=== PATIENT | female | born 1995 | race Caucasian/White ===

== ENCOUNTER 2021-01-23 07:48 | Day surgery (SDC) | payer OTHER ==
[2021-01-22 17:46] LABS: Absolute Lymphocytes (CBC) 2.7 K/uL (0.7-4.9); Basophils % 0.3 % (0-1.3); Hematocrit 39.7 % (36.0-45.0); Lymphocytes % 21.1 % (15.3-44.8); MPV 7.6 fL (7.6-11.3); RBC Red Blood Cell Count 4.68 M/uL (3.86-4.86)
[2021-01-22 17:54] LABS: BUN Blood Urea Nitrogen 9 mg/dL (7-18); Bicarbonate 25 mmol/L (21-32); Glucose Level 83 mg/dL (74-106); Potassium 3.7 mmol/L (3.5-5.1); Sodium Level 138 mmol/L (136-145)
[2021-01-23] MEDS ORDERED: CEFAZOLIN/SWI 1gm 1 GM/10 ML SYR ONE (08:34)
[2021-01-23] MEDS ORDERED: METHYLENE BLUE 0.5% 10 ML AMP ONE (08:58)
[2021-01-23] MEDS ORDERED: LIDOCAINE 1% MPF 5 ML VIAL ONE (09:08)
[2021-01-23] MEDS ORDERED: propofoL 200 MG/20 ML VIAL IV ONE (09:08)
[2021-01-23] MEDS ORDERED: ROCURONIUM 50 MG/5 ML VIAL IV ONE (09:08)
[2021-01-23] MEDS ORDERED: FENTANYL CITR 100 MCG/2 ML ONE ×2 (09:08→10:13)
[2021-01-23] MEDS ORDERED: NEOSTIGMINE 1 MG/ML -5 ML ONE (10:13)
[2021-01-23] MEDS ORDERED: GLYCOPYRROLATE 0.2 MG/ML SYR ONE (10:13)
--- NOTE | 2021-01-23 10:15 | P.BOP ---
Preoperative diagnosis: Infected pilonidal cyst Postoperative diagnosis: same Primary procedure: Wide excision Infected pilonidal cyst 12 x 5 x 3 cm Estimated blood loss: <10cc Specimen: culture, cyst Findings: abscess Anesthesia: General Complications: None Drain(s): Other Transferred to: Recovery Room Condition: Good
[2021-01-23] MEDS: MORPHINE 4 MG/ML SYR ONE ×2 (10:44→10:55)
[2021-01-23] MEDS ORDERED: PROMETHAZINE INJ 25 MG/ML AMP ONE (10:48)
[2021-01-23] MEDS: CODEINE 30MG/APAP 300MG TAB ONE ×2 (12:00→12:10)
[2021-01-23 13:22] VITALS: O2SAT 100
--- NOTE | 2021-01-23 13:24 | OP ---
Date of Procedure: 01/23/2021 Surgeon: Kyree Easton MD Preoperative Diagnosis: Infected pilonidal cyst and 9 weeks intrauterine . Postoperative Diagnosis: Infected pilonidal cyst and 9 weeks intrauterine plus abscess. Procedure: Wide excision of infected pilonidal cyst 12 x 5 x 3 cm. Specimen: Culture of the pus and cyst. Finding: Abscess on the cyst with purulent discharge. Anesthesia: General plus local. Indication: This is the case of a 25-year-old patient, comes to us with a tender pilonidal cyst. Rosangela kalli has been dealing with that for a few years, but never got to the point of this redness and bothered her. When we looked in the area, the patient has multiple openings from previous attempt to drain _ of abscess. At this time, she has fluctuance, induration, redness. She has on and off iss ues when she was a teenager, but not like this. She has I and D's in the past. I explained to cristóbal rajan that with her hospice liaison yesterday when we saw her in the office because we are planning to do w jessica excision of this infected pilonidal cyst with drainage of an abscess and she is going to be on Au gmentin and Tylenol No.3 and she discussed that with the hospice liaison and they agreed with the plan. The benefits, alternatives, and risks were fully explained to her and her , which include, bu t not limited to infection, bleeding, damage to adjacent structures, anesthesia complication, nonheal ing wound, [place], and even . They also understand this may not relieve any symptoms. She might ne ed more than one surgical intervention. It may recur and also she understands she most likely will n eed wound care. She signed a consent. Procedure In Detail: The patient was brought to the operating room, placed in supine position. Anes thesia was done without complication. The patient was placed in prone position with proper protectio n. The perisacral area was prepped and draped in usual sterile fashion. We have this large cyst pre sent with multiple openings. We put a blue dye through one of the openings leading the area of the c yst and then after that, we proceeded to make this excision all the way down to sacrum. The area is large about 12 x 5 x 3 cm. The entire area was removed. The abscess that we found deep inside was d rained, cultured, irrigated, hemostasis obtained, and then the area was packed with wet-to-dry dressi ng. The patient tolerated the procedure well. The patient was sent to recovery in stable condition. TENA/LINWOOD Voice ID: [id number] Report ID: [id number]
[2021-01-23 13:26] VITALS: BP 125/57; TEMP 98.5
--- NOTE | 2021-01-23 13:40 | DS ---
Diagnosis: Infected pilonidal cyst with abscess. Procedure: Wide excision of infected pilonidal cyst. Disposition: Home. Activity: As tolerated. No heavy lifting. Plan: Follow up in my office in 1 week. Call for appointment at [phone]. The patient will do dres sing changes daily, starting 48 hours from now with normal saline. The patient's was explain ed. Medications: Include Tylenol No.3 q.4 hours p.r.n. pain and Augmentin 875 p.o. q.12. TENA/LINWOOD Voice ID: [id number] Report ID: [id number]
== END 2021-01-23 13:00 | disposition home or self-care (01) ==
LOC: OR 07:48
PROVIDERS: ATTEND Surgery
PROC: 0JB90ZZ Excision of Buttock Subcutaneous Tissue and Fascia, Open Approach (ICD-10-PCS; principal; 2021-01-23 09:00)
DX: L05.01 Pilonidal cyst with abscess (principal); Z20.822 Contact with and (suspected) exposure to COVID-19
CPT/HCPCS: 36415; 80048; 82947; 85025; 87070; 87075; 87205; 88304; J0690; J2550; J2704; J2710; J3010; U0003

== ENCOUNTER 2021-11-22 14:13 | Emergency (ER) | payer OTHER, BC ==
--- OUTSIDE RECORDS SUMMARY | 2021-11-22 14:16 | XMS REPORT | Continuity of Care Document ---
:1995 Author Organization [facility] t Address [address] [place] [address] Care Team Providers Name Role Phone Yovany Angeles Attending Clinician Unavailable LANE_ENIO_Karthik_t Attending Clinician Unavailable LANE_YULISA_Karthik_T Attending Clinician Unavailable Elvia Angeles Attending Clinician [phone] Rodney GIBSON Attending Clinician Pob, Lab Main Attending Clinician Unavailable RODNEY Attending Clinician Unavailable Doctor Unassigned, Name Attending Clinician Unavailable Alex Galicia DO Attending Clinician Lab, Fam Pob I Attending Clinician Unavailable Unknown Attending Clinician Unavailable UNKNOWN Attending Clinician Unavailable Yovany GTZ Attending Clinician Unavailable TYLER DEGROOT Attending Clinician Unavailable Yovany Angeles Admitting Clinician Unavailable LANE_ENIO_Karthik_dionicio Admitting Clinician Unavailable LANE_YULISA_Karthik_T Admitting Clinician Unavailable Payers Payer Name Policy Type Policy Number Effective Date Expiration Date Abby bishop AETDEMI (POS) [id number] 2004 00:00:00 [place] [id number] 2021 00[place]00[place]00 [place] Problems Condition Condition Condition Status Onset Resolution Last Treating Co mments Source Name Details Category Date Date Treatment Clinician Date Irregular Irregular Disease Active Uni vers periods/me periods/me 6-23 it y of nstrual nstrual 00:00: [place] cycles cycles [address] [place] [address] Patient Patient Disease Active [facility] desires desires 6-23 [place] Morbid Morbid Disease Active 2019-06 Univers obesity obesity 0-23 [place] of with body with body [place] mass index mass index 00 Me dical of of Branch 40.0-49.9 40.0-49.9 Class 3 Class 3 Disease Active 2019-06 Univers severe severe 0-23 ity of obesity obesity 00:00: [place] without without 00 Medical serious serious Branch comorbidit comorbidit y with y with body mass body mass index index (BMI) of (BMI) of 45.0 to 45.0 to 49.9 in 49.9 in adult, adult, unspecifie unspecifie d obesity d obesity type type Allergies, Adverse Reactions, Alerts Allergy Allergy Status Severity Reaction(s) Onset Inactive Treating Comm ents Source Name Type Date Date Clinician No Known DA Active [facility]15 [facility] [place] No Known DA Active U [facility] Allergie 08-01 [facility] [place] NO KNOWN Drug Active Univers ALLERGIE Class ity of S [facility] Social History Social Habit Start Date Stop Date Quantity Comments Source Exposure to Not sure [facility] SARS-CoV-2 [facility] (event) Branch Tobacco use and 2020-12-13 2020-12-13 Never used Universit y of exposure 00:00:00 00:00:00 [facility] Alcohol intake 2020-12-13 2020-12-13 Current drinker Unive rsity of 00:00:00 00:00:00 of alcohol [place] [facility] (finding) Branch History SDNY 2020-03-06 2020-03-06 2 University o f Alcohol Frequency 00:00:00 00:00:00 [place] M edical Branch History SDOH 2020-03-06 2020-03-06 2 University o f Alcohol Std 00:00:00 00:00:00 [place] [facility] Drinks Branch History SDNY 2020-03-06 2020-03-06 1 University o f Alcohol Binge 00:00:00 00:00:00 [place] [facility] al Branch Alcohol Comment 2020-03-06 2020-03-06 rarely Universit y of 00:00:00 00:00:00 [facility] Sex Assigned At [birth year] Universit y of 00:00:00 00:00:00 [facility] Smoking Status Start Date Stop Date Source Unknown if ever smoked Universit y [facility] [place] [facility] Never smoker [facility] Medications Ordered Filled Start Stop Current Ordering Indication Dosage Frequency Signature Comments Components Source Medication Medication Date Date Medication? Clinician (SIG) Name Name levonorgest 2020- No 1{devic 1 Device Univers reL 14 6-23 06-23 e} by ity of mcg/24 hrs 15:18: 00:00 Intrauteri [place] (3 yrs) 44 :00 ne route Medical 13.5 mg IUD once now. [facility] levonorgest 2020- No 1{devic 1 Device Univers reL 14 6-23 06-23 e} by ity of mcg/24 hrs 15:18: 00:00 Intrauteri [place] (3 yrs) 44 :00 ne route Medical 13.5 mg IUD once now. [facility] metformin 2020-0 Yes [id number] 1500mg Take 3 Univers ER 500 mg 6-22 104 tablets by ity of 24 hr 00:00: mouth at [place] tablet 00 bedtime. [facility] [place] first week take one tablet at night, for the second week take 2 tablets, and then for the third take three tablets metformin 2020-0 Yes [id number] 1500mg Take 3 Univers ER 500 mg 6-22 104 tablets by ity of 24 hr 00:00: mouth at [place] tablet 00 bedtime. [facility] [place] first week take one tablet at night, for the second week take 2 tablets, and then for the third take three tablets metformin 2020-0 Yes [id number] 1500mg Take 3 Univers ER 500 mg 6-22 104 tablets by ity of 24 hr 00:00: mouth at [place] tablet 00 bedtime. Medical For the [facility] first week take one tablet at night, for the second week take 2 tablets, and then for the third take three tablets metformin 2020-0 Yes [id number] 1500mg Take 3 Univers ER 500 mg 6-22 104 tablets by ity of 24 hr 00:00: mouth at [place] tablet 00 bedtime. [facility] [place] first week take one tablet at night, for the second week take 2 tablets, and then for the third take three tablets metformin 2020-0 Yes [id number] 1500mg Take 3 Univers ER 500 mg 6-22 104 tablets by ity of 24 hr 00:00: mouth at [place] tablet 00 bedtime. Medical For the [facility] first week take one tablet at night, for the second week take 2 tablets, and then for the third take three tablets metformin 2020-0 Yes [id number] 1500mg Take 3 Univers ER 500 mg 6-22 104 tablets by ity of 24 hr 00:00: mouth at [place] tablet 00 bedtime. Medical For the [facility] first week take one tablet at night, for the second week take 2 tablets, and then for the third take three tablets [id number] 2020-1 Yes [id number] 1{tbl} Take 1 Univers 3-dha-epa-f 0-23 tablet by ity of deepti oil 00:00: mouth [place] ( 00 daily. Medical GUMMY) 400 Branch mcg-35 mg -25 mg-5 mg Chew [id number] 2020-1 Yes [id number] 1{tbl} Take 1 Univers 3-dha-epa-f 0-23 tablet by ity of deepti oil 00:00: mouth [place] ( 00 daily. Medical GUMMY) 400 Branch mcg-35 mg -25 mg-5 mg Chew [id number] 2020-1 Yes [id number] 1{tbl} Take 1 Univers 3-dha-epa-f 0-23 tablet by ity of deepti oil 00:00: mouth [place] ( 00 daily. Medical GUMMY) 400 Branch mcg-35 mg -25 mg-5 mg Chew [id number] 2020-1 Yes [id number] 1{tbl} Take 1 Univers 3-dha-epa-f 0-23 tablet by ity of deepti oil 00:00: mouth [place] ( 00 daily. Medical GUMMY) 400 Branch mcg-35 mg -25 mg-5 mg Chew [id number] 2020-1 Yes [id number] 1{tbl} Take 1 Univers 3-dha-epa-f 0-23 tablet by ity of deepti oil 00:00: mouth [place] ( 00 daily. Medical GUMMY) 400 Branch mcg-35 mg -25 mg-5 mg Chew [id number] 2020-1 Yes [id number] 1{tbl} Take 1 Univers 3-dha-epa-f 0-23 tablet by ity of deepti oil 00:00: mouth [place] ( 00 daily. Medical GUMMY) 400 Branch mcg-35 mg -25 mg-5 mg Chew [id number] 2020-1 Yes [id number] 1{tbl} Take 1 Univers 3-dha-epa-f 0-23 tablet by ity of deepti oil 00:00: mouth [place] ( 00 daily. Medical GUMMY) 400 Branch mcg-35 mg -25 mg-5 mg Chew [id number] 2020-1 Yes [id number] 1{tbl} Take 1 Univers 3-dha-epa-f 0-23 tablet by ity of deepti oil 00:00: mouth [place] ( 00 daily. Medical GUMMY) 400 Branch mcg-35 mg -25 mg-5 mg Chew [id number] 2020-1 Yes [id number] 1{tbl} Take 1 Univers 3-dha-epa-f 0-23 tablet by ity of deepti oil 00:00: mouth [place] ( 00 daily. Medical GUMMY) 400 Branch mcg-35 mg -25 mg-5 mg Chew [id number] 2020-1 Yes [id number] 1{tbl} Take 1 Univers 3-dha-epa-f 0-23 tablet by ity of deepti oil 00:00: mouth [place] ( 00 daily. Medical GUMMY) 400 Branch mcg-35 mg -25 mg-5 mg Chew [id number] 2020-1 Yes [id number] 1{tbl} Take 1 Univers 3-dha-epa-f 0-23 tablet by ity of deepti oil 00:00: mouth [place] ( 00 daily. Medical GUMMY) 400 Branch mcg-35 mg -25 mg-5 mg Chew levonorgest 2020-0 Yes 1{devic 1 Device Univers reL 14 9-14 e} by ity of mcg/24 hrs 19:12: Intrauteri [place] (3 yrs) 52 ne route Medical 13.5 mg IUD once now. [facility] levonorgest 2020-0 Yes 1{devic 1 Device Univers reL 14 9-14 e} by ity of mcg/24 hrs 19:12: Intrauteri [place] (3 yrs) 52 ne route Medical 13.5 mg IUD once now. [facility] levonorgest 2020-0 Yes 1{devic 1 Device Univers reL 14 9-14 e} by ity of mcg/24 hrs 19:12: Intrauteri [place] (3 yrs) 52 ne route Medical 13.5 mg IUD once now. [facility] levonorgest 2020-0 Yes 1{devic 1 Device Univers reL 14 9-14 e} by ity of mcg/24 hrs 19:12: Intrauteri [place] (3 yrs) 52 ne route Medical 13.5 mg IUD once now. [facility] levonorgest 2020-0 Yes 1{devic 1 Device Univers reL 14 9-14 e} by ity of mcg/24 hrs 19:12: Intrauteri [place] (3 yrs) 52 ne route Medical 13.5 mg IUD once now. [facility] glycopyrrol 2019-0 Yes TAKE ONE Un evelyn ate 1 mg 8-19 (1) ity of tablet 00:00: TABLET(S) [place] 00 BY MOUTH Medical ONCE A DAY Branch FOR ONE WEEK THEN INCREASE TO TWO (2) TABLET(S) DAILY TOLERATED. glycopyrrol 2020-0 Yes TAKE ONE Un evelyn ate 1 mg 8-19 (1) ity of tablet 00:00: TABLET(S) [place] 00 BY MOUTH Medical ONCE A DAY Branch FOR ONE WEEK THEN INCREASE TO TWO (2) TABLET(S) DAILY TOLERATED. glycopyrrol 2019-0 Yes TAKE ONE Un evelyn ate 1 mg 8-19 (1) ity of tablet 00:00: TABLET(S) [place] 00 BY MOUTH Medical ONCE A DAY Branch FOR ONE WEEK THEN INCREASE TO TWO (2) TABLET(S) DAILY TOLERATED. glycopyrrol 2020-0 Yes TAKE ONE Un evelyn ate 1 mg 8-19 (1) ity of tablet 00:00: TABLET(S) [place] 00 BY MOUTH Medical ONCE A DAY Branch FOR ONE WEEK THEN INCREASE TO TWO (2) TABLET(S) DAILY TOLERATED. glycopyrrol 2020-0 Yes TAKE ONE Un evelyn ate 1 mg 8-19 (1) ity of tablet 00:00: TABLET(S) [place] 00 BY MOUTH Medical ONCE A DAY Branch FOR ONE WEEK THEN INCREASE TO TWO (2) TABLET(S) DAILY TOLERATED. glycopyrrol 2020-0 2020- No TAKE ONE U nivers ate 1 mg 8-19 06-23 (1) ity of tablet 00:00: 00:00 TABLET(S) [place] 00 :00 BY MOUTH Medical ONCE A DAY Branch FOR ONE WEEK THEN INCREASE TO TWO (2) TABLET(S) DAILY TOLERATED. glycopyrrol 2019-0 2020- No TAKE ONE U nivers ate 1 mg 02-08 (1) ity of tablet 00:00: 00:00 TABLET(S) [place] 00 :00 BY MOUTH Medical ONCE A DAY Branch FOR ONE WEEK THEN INCREASE TO TWO (2) TABLET(S) DAILY TOLERATED. buPROPion 2019-0 Yes TAKE ONE Univ ers XL 300 mg 8-08 (1) ity of 24 hr 00:00: TABLET(S) [place] tablet 00 BY MOUTH Medical ONCE A DAY Branch IN THE MORNING. buPROPion 2019-0 Yes TAKE ONE Univ ers XL 300 mg 8-08 (1) ity of 24 hr 00:00: TABLET(S) [place] tablet 00 BY MOUTH Medical ONCE A DAY Branch IN THE MORNING. buPROPion 2019-0 Yes TAKE ONE Univ ers XL 300 mg 8-08 (1) ity of 24 hr 00:00: TABLET(S) [place] tablet 00 BY MOUTH Medical ONCE A DAY Branch IN THE MORNING. buPROPion 2019-0 Yes TAKE ONE Univ ers XL 300 mg 8-08 (1) ity of 24 hr 00:00: TABLET(S) [place] tablet 00 BY MOUTH Medical ONCE A DAY Branch IN THE MORNING. buPROPion 2019-0 Yes TAKE ONE Univ ers XL 300 mg 8-08 (1) ity of 24 hr 00:00: TABLET(S) [place] tablet 00 BY MOUTH Medical ONCE A DAY Branch IN THE MORNING. buPROPion 2019-0 2020- No TAKE ONE Uni vers XL 300 mg 812-13 (1) ity of 24 hr 00:00: 00:00 TABLET(S) [place] tablet 00 :00 BY MOUTH Medical ONCE A DAY Branch IN THE MORNING. buPROPion 2019-0 2020- No TAKE ONE Uni vers XL 300 mg 812-13 (1) ity of 24 hr 00:00: 00:00 TABLET(S) [place] tablet 00 :00 BY MOUTH Medical ONCE A DAY Branch IN THE MORNING. clindamycin 2019-0 Yes APPLY A Uni vers 1 % gel 7-20 SMALL ity of 00:00: AMOUNT TO [place] [id number] AFFECTED Medical AREA TWICE Branch A DAY clindamycin 2020-0 Yes APPLY A Uni vers 1 % gel 7-20 SMALL ity of 00:00: AMOUNT TO [place] AFFECTED Medical AREA TWICE Branch A DAY clindamycin Yes APPLY A Uni vers 1 % gel 7-20 SMALL ity of 00:00: AMOUNT TO [place] AFFECTED Medical AREA TWICE Branch A DAY clindamycin Yes APPLY A Uni vers 1 % gel 7-20 SMALL ity of 00:00: AMOUNT TO [place] AFFECTED Medical AREA TWICE Branch A DAY clindamycin Yes APPLY A Uni vers 1 % gel 7-20 SMALL ity of 00:00: AMOUNT TO [place] AFFECTED Medical AREA TWICE Branch A DAY clindamycin 2020- No APPLY A Un evelyn 1 % gel 7-10 12- SMALL ity of 00:00: 00:00 AMOUNT TO [place] 00 :00 AFFECTED Medical AREA TWICE Branch A DAY clindamycin 2020- No APPLY A Un evelyn 1 % gel 7-20 - SMALL ity of 00:00: 00:00 AMOUNT TO [place] 00 :00 AFFECTED Medical AREA TWICE Branch A DAY FLUoxetine Yes TAKE 1 Unive rs 40 mg 7-07 CAPSULE ity of capsule 00:00: (40 MG) BY [facility] MOUTH Medical DAILY Branch FLUoxetine Yes TAKE 1 Unive rs 40 mg 7-07 CAPSULE ity of capsule 00:00: (40 MG) BY [place] [address] MOUTH Medical DAILY Branch FLUoxetine Yes TAKE 1 Unive rs 40 mg 7-07 CAPSULE ity of capsule 00:00: (40 MG) BY [place] [address] MOUTH Medical DAILY Branch FLUoxetine Yes TAKE 1 Unive rs 40 mg 7-07 CAPSULE ity of capsule 00:00: (40 MG) BY [place] [address] MOUTH Medical DAILY Branch FLUoxetine Yes TAKE 1 Unive rs 40 mg 7-07 CAPSULE ity of capsule 00:00: (40 MG) BY [place] [address] MOUTH Medical DAILY Branch FLUoxetine 2020- No TAKE 1 Univ ers 40 mg -12 26-23 CAPSULE ity of capsule 00:00: 00:00 (40 MG) BY [facility] [place] 00 : MOUTH Medical DAILY Branch FLUoxetine 2020- No TAKE 1 Univ ers 40 mg -12 26-23 CAPSULE ity of capsule 00:00: 00:00 (40 MG) BY [place] 00 :00 MOUTH Medical DAILY Branch CLARAVIS 20 2019- No TAKE ONE U nivers mg capsule 12-15 (1) ity of 00:00: 00:00 CAPSULE(S) [place] 00 :00 BY MOUTH Medical TWICE A Branch DAY WITH MEALS. CLARAVIS 20 2019- No TAKE ONE U nivers mg capsule 12-15 (1) ity of 00:00: 00:00 CAPSULE(S) [place] 00 :00 BY MOUTH Medical TWICE A Branch DAY WITH MEALS. Immunizations Ordered Filled Immunization Date Status Comments [facility] e Immunization Name Name HPV Unspecified 2014-06-23 Completed Universit y of 00:00:00 [place] [facility] HPV Unspecified 2014-06-23 Completed Universit y of 00:00:00 [place] [facility] HPV Unspecified 2014-06-23 Completed Universit y of 00:00:00 [place] [facility] HPV Unspecified 2014-06-23 Completed Universit y of 00:00:00 [place] [facility] HPV Unspecified 2014-06-23 Completed Universit y of 00:00:00 [place] [facility] HPV Unspecified 2014-06-23 Completed Universit y of 00:00:00 [place] [facility] HPV Unspecified 2014-06-23 Completed Universit y of 00:00:00 [place] [facility] HPV Unspecified 2014-06-23 Completed Universit y of 00:00:00 [place] [facility] HPV Unspecified 2014-06-23 Completed Universit y of 00:00:00 [place] [facility] HPV Unspecified 2014-06-23 Completed Universit y of 00:00:00 [place] [facility] HPV Unspecified 2014-06-23 Completed Universit y of 00:00:00 [facility] Vital Signs Vital Name Observation Time Observation Value Comments Source Systolic blood 2020-12-12 18:15:00 121 mm[Hg] Univer sity of pressure [facility] Diastolic blood 2020-12-12 18:15:00 73 mm[Hg] Unive rsity of [facility] Heart rate 2020-12-12 18:15:00 69 /min [facility] [place] Body temperature 2020-12-12 18:15:00 37.06 [facility] Respiratory rate 2020-12-12 18:15:00 18 /min [facility] Body height 2020-12-12 18:15:00 160 cm [facility] Body weight 2020-12-12 18:15:00 116.121 kg [facility] BMI 2020-12-12 18:15:00 45.35 kg/m2 [facility] Systolic blood 2020-04-14 18:18:00 104 mm[Hg] Univer sity of pressure [facility] Diastolic blood 2020-04-14 18:18:00 69 mm[Hg] Unive rsity [facility] Heart rate 2020-04-14 18:18:00 76 /min [facility] Body temperature 2020-04-14 18:18:00 36.89 [facility] Respiratory rate 2020-04-14 18:18:00 20 /min [facility] Body height 2020-04-14 18:18:00 160 cm [facility] Body weight 2020-04-14 18:18:00 111.642 kg [facility] BMI 2020-04-14 18:18:00 43.60 kg/m2 [facility] Procedures Procedure Date / Time Performing Clinician Source Performed [id number] 2021-08-15 00:00:00 [facility] PROLACTIN 2020-12-13 19:18:00 [facility] FREE T4 2020-12-13 19:18:00 [facility] [place] [facility] THYROID STIMULATING 2020-12-13 19:18:00 [facility] HORMONE [facility] LIPID PANEL 2020-12-13 19:18:00 [facility] ([id number])(TOTAL Medical Branch CHOLESTEROL, TRIGLYCERIDES, HDL) GLYCOSYLATED HEMOGLOBIN 2020-12-13 19:18:00 [facility] (A1C) [facility] FREE T3 2020-12-13 19:18:00 [facility] [place] [facility] CONSENT/REFUSAL FOR 2020-12-13 18:56:12 Doctor Unassigned, No [facility] DIAGNOSIS AND TREATMENT Name Medical [place] ASSIGNMENT OF BENEFITS 2020-12-13 18:56:03 Doctor Unassigned, No [facility] Name Medical Branch DISCLOSURE AND CONSENT, 2020-04-14 05:01:00 Doctor Unassigned, N o University [facility] MEDICAL AND SURGICAL Name Medical [facility] PROCEDURES CONSENT/REFUSAL FOR 2020-03-06 17:58:33 Doctor Unassigned, No Un [facility] DIAGNOSIS AND TREATMENT Name Medical Branch ASSIGNMENT OF BENEFITS 2020-03-06 17:58:19 Doctor Unassigned, No [facility] Name Medical Branch Encounters Start End Encounter Admission Attending Care Care Encounter Source Date/Time Date/Time Type Type Clinicians Facility Department ID 2021-08-27 Inpatient Mariah Germain [facility] [id number] [facility] 15:39:00 [id number] [facility] 2021-08-13 Inpatient Mariah Germain [facility] [id number] [facility] 11:00:[id number] [facility] 2021-10-27 2021-10-27 Outpatient GC_SWHATBIC PRIV PRIV [id number] [facility] 02:08:00 02:08:00 _Trevon [id number] Medic al 2021-10-13 2021-10-13 Outpatient GC_SWHAOMC_ PRIV PRIV [id number] [facility] 04:17:00 04:17:00 Trevon [id number] Medica l 2021-10-12 2021-10-12 Outpatient GC_SWHAOMC_ PRIV PRIV [id number] [facility] 03:47:00 03:47:00 Trevon [id number] Medica l 2021-10-12 2021-10-12 Outpatient Mariah Angeles PRIV PRIV [id number] 00:00:00 00:00:00 Elvia [id number] 2021-09-29 2021-09-29 Outpatient GC_SWHATBIC PRIV PRIV [id number] [facility] 01:46:00 01:46:00 _Trevon [id number] Medic al 2021-09-29 2021-09-29 Outpatient GC_SWHAOMC_ PRIV PRIV [id number] [facility] 01:46:00 01:46:00 Trevon [id number] Medica l 2021-09-27 2021-09-27 Outpatient GC_SWHAOMC_ PRIV PRIV [id number] [facility] 07:04:00 07:04:00 Bruce_T [id number] Medica l 2021-09-26 2021-09-26 Outpatient GC_SWHAOMC_ PRIV PRIV [id number] [facility] 11:03:00 11:03:00 Bruce_T [id number] Medica l 2021-09-26 2021-09-26 Outpatient Karthik Mariah PRIV PRIV [id number] 00:00:00 00:00:00 Elvia [id number] 2021-09-11 2021-09-11 Outpatient GC_SWHAOMC_ PRIV PRIV [id number] [facility] 08:24:00 08:24:00 Bruce_T [id number] Medica l 2021-09-11 2021-09-11 Outpatient GC_SWHAOMC_ PRIV PRIV [id number] [facility] 08:24:00 08:24:00 Bruce_T [id number] Medica l 2021-09-03 2021-09-03 Outpatient GC_SWHAOMC_ PRIV PRIV [id number] [facility] 03:13:00 03:13:00 Bruce_T [id number] Medica l 2021-09-01 2021-09-01 Outpatient GC_SWHATBIC PRIV PRIV [id number] [facility] 01:37:00 01:37:00 _Bruce_t [id number] Medic al 2021-08-30 2021-08-30 Outpatient GC_SWHAOMC_ PRIV PRIV [id number] [facility] 03:15:00 03:15:00 Bruce_T [id number] Medica l 2021-08-30 2021-08-30 Outpatient Karthik Mariah PRIV PRIV [id number] 00:00:00 00:00:00 Elvia [id number] 2021-08-22 2021-08-22 Outpatient GC_SWHAOMC_ PRIV PRIV [id number] [facility] 05:00:00 05:00:00 Bruce_T [id number] Medica l 2021-08-22 2021-08-22 Outpatient GC_SWHAOMC_ PRIV PRIV [id number] [facility] 05:00:00 05:00:00 Bruce_T [id number] Medica l 2021-08-22 2021-08-22 Outpatient Mariah Angeles PRIV PRIV [id number] 00:00:00 00:00:00 Elvia [id number] 2021-08-15 2021-08-17 Inpatient Mariah Germain [facility] OBPP [id number] [facility] 13:19:00 10:45:00 [id number] [facility] 2021-08-15 2021-08-17 Inpatient EL Mariah Angeles [facility] OBPP [id number] [facility] 13:19:00 10:45:00 13 [facility] 2021-08-16 2021-08-16 Outpatient GC_SWHAOMC_ PRIV PRIV [id number] [facility] 02:28:00 02:28:00 Bruce_T [id number] Medica l 2021-08-16 2021-08-16 Outpatient GC_SWHAOMC_ PRIV PRIV [id number] [facility] 02:28:00 02:28:00 Bruce_T [id number] Medica l 2021-08-15 2021-08-15 Outpatient GC_SWHAOMC_ PRIV PRIV [id number] [facility] 03:17:00 03:17:00 Bruce_T [id number] Medica l 2021-08-14 2021-08-14 Outpatient GC_SWHAOMC_ PRIV PRIV [id number] [facility] 02:45:00 02:45:00 Bruce_T [id number] Medica l 2021-08-14 2021-08-14 Outpatient Mraiah Angeles PRIV PRIV [id number] 00:00:00 00:00:00 Elvia [id number] 2021-08-06 2021-08-06 Outpatient GC_SWHAOMC_ PRIV PRIV [id number] [facility] 05:32:00 05:32:00 Bruce_T [id number] Medica l 2021-08-06 2021-08-06 Outpatient GC_SWHAOMC_ PRIV PRIV [id number] [facility] 05:32:00 05:32:00 Bruce_T [id number] Medica l 2021-08-06 2021-08-06 Outpatient Karthik Mariah PRIV PRIV [id number] 00:00:00 00:00:00 Elvia [id number] 2021-08-01 2021-08-03 Inpatient Mariah Germain [facility] OB[facility]TE [id number] [facility] 10:57:00 15:38:00 [id number] [facility] 2021-08-01 2021-08-01 Inpatient Mariah Germain [facility] [id number] [facility] 10:57:00 10:57:00 29 [facility] 2021-07-27 2021-07-27 Outpatient GC_SWHAOMC_ PRIV PRIV [id number] [facility] 01:00:00 01:00:00 Bruce_T [id number] Medica l 2021-07-26 2021-07-26 Outpatient GC_SWHAOMC_ PRIV PRIV [id number] [facility] 04:51:00 04:51:00 Bruce_T [id number] Medica l 2021-07-24 2021-07-24 Outpatient GC_SWHAOMC_ PRIV PRIV [id number] [facility] 11:28:00 11:28:00 Bruce_T [id number] Medica l 2021-07-24 2021-07-24 Outpatient Karthik Mariah PRIV PRIV [id number] 00:00:00 00:00:00 Elvia [id number] 2021-07-18 2021-07-18 Outpatient GC_SWHAOMC_ PRIV PRIV [id number] [facility] 03:58:00 03:58:00 Bruce_T [id number] Medica l 2021-07-18 2021-07-18 Outpatient GC_SWHAOMC_ PRIV PRIV [id number] [facility] 03:58:00 03:58:00 Bruce_T [id number] Medica l 2021-07-18 2021-07-18 Outpatient Karthik Mariah PRIV PRIV [id number] 00:00:00 00:00:00 Elvia [id number] 2021-07-17 2021-07-17 Outpatient GC_S[facility]AOMC_ PRIV PRIV [id number] [facility] 11:24:00 11:24:00 Trevon [id number] Medica l 2021-07-16 2021-07-16 Outpatient GC_SWHAOMC_ PRIV PRIV [id number] [facility] 11:44:00 11:44:00 Trevon [id number] Medica l 2021-07-11 2021-07-11 Outpatient GC_SWHAOMC_ PRIV PRIV [id number] [facility] 05:25:00 05:25:00 Trevon [id number] Medica l 2021-07-10 2021-07-10 Outpatient GC_SWHAOMC_ PRIV PRIV [id number] [facility] 01:21:00 01:21:00 Trevon [id number] Medica l 2021-07-09 2021-07-09 Outpatient GC_SWHAOMC_ PRIV PRIV [id number] [facility] 09:40:00 09:40:00 Trevon [id number] Medica l 2021-07-08 2021-07-08 Outpatient GC_SWHAOMC_ PRIV PRIV [id number] [facility] 11:21:00 11:21:00 Trevon [id number] Medica l 2021-07-07 2021-07-07 Outpatient GC_SWHAOMC_ PRIV PRIV [id number] [facility] 02:42:00 02:42:00 Trevon [id number] Medica l 2021-07-06 2021-07-06 Outpatient GC_SWHAOMC_ PRIV PRIV [id number] [facility] 11:57:00 11:57:00 Trevon [id number] Medica l 2021-07-06 2021-07-06 Outpatient Mariah Angeles PRIV PRIV [id number] 00:00:00 00:00:00 Elvia [id number] 2021-07-05 2021-07-05 Outpatient GC_[facility]AOM[facility]_ PRIV PRIV [id number] [facility] 01:11:00 01:11:00 Trevon [id number] Medica l 2021-06-282021-06-28 Outpatient GC_SWHATBIC PRIV PRIV [id number] [facility] 01:54:00 01:54:00 _Trevon [id number] Medic al 2021-06-09 2021-06-09 Outpatient GC_SWHAOMC_ PRIV PRIV 220 [id number] [facility] 03:03:00 03:03:00 Trevon [id number] Medica l 2021-06-08 2021-06-08 Outpatient GC_SWHAOMC_ PRIV PRIV [id number] [facility] 01:04:00 01:04:00 Trevon [id number] Medica l 2021-06-08 2021-06-08 Outpatient Mariah Angeles PRIV PRIV [id number] 00:00:00 00:00:00 Elvia [id number] 2021-06-07 2021-06-07 Outpatient GC_SWHAOMC_ PRIV PRIV 220 [id number] [facility] 03:33:00 03:33:00 Trevon [id number] Medica l 2021-05-31 2021-05-31 Outpatient GC_SWHATBIC PRIV PRIV 220 [id number] [facility] 02:16:00 02:16:00 _Trevon [id number] Medic al 2020-12-22 2020-12-22 Telephone Kwasi Stevens [facility] [id number] Univers 00:00:00 00:00:00 Kerri 350.1.13.10 [place] [phone] Ca dical nal [address] [facility] 2020-12-13 2020-12-13 Director Mba Jaskaran [facility] Main [facility] 1.2.8 40.114 [id number] Univers 14:03:11 14:18:11 Visit Rodney Kwasi Manning 350.1.13.10 ity [facility] [place] [phone] Ca dical nal [address] [facility] 2020-12-13 2020-12-13 Outpatient R [facility] [id number] Univers 14:00:00 14:00:00 [id number] ity [facility] 2020-12-13 2020-12-13 Outpatient R KWASI STEVENS [facility] [id number] Univers 14:00:00 14:00:00 ity [facility] 2020-12-13 2020-12-13 Orders Doctor LEONIDES 1.2.840.114 [id number] Univers 00:00:00 00:00:00 Only Unassigned, ESHA 350.1.13.10 ity of [place] [facility] 4.2.7.2.686 James as [phone] [address] 2020-12-12 2020-12-12 Office Kwasi Stevens [facility] 1.2.840.114 [id number] Univers 13:00:47 16:51:45 Visit [place] 350.1.13.10 [place] [phone] Ca dical nal [address] [facility] 2020-12-12 2020-12-12 Outpatient R KWASI STEVENS [facility] [id number] Univers 13:00:00 13:00:00 [id number] ity [facility] 2020-12-12 2020-12-12 Outpatient R KWASI STEVENS [facility] [id number] Univers 13:00:00 13:00:00 ity of [facility] 2020-09-12 2020-09-12 Patient Grayson [facility] 1.2.840.114 [id number] Univers 00:00:00 00:00:00 Outreach Phil DENTON 350.1.13.[address] [facility] 4[place] [phone] Ca dical [address] 2020-05-30 2020-05-30 Outpatient [facility] [id number] Univers 14:00:00 14:00:00 [facility] 2020-05-23 2020-05-23 Laboratory Lab, Adc Fam Pob I [facility] 1.2. 840.114 [id number] Univers 16:35:03 16:55:03 Only Unknown, Attending Health 350.1.13.10 ity of [place] 4.2.7.2.686 James as Professio [phone] Ca dical nal [address] 2020-05-23 2020-05-23 Outpatient R [facility] [id number] Univers 16:40:00 16:40:00 ity [facility] 2020-05-23 2020-05-23 Outpatient R UNKNOWN, [facility] [id number] Univers 16:40:00 16:40:00 ATTENDING ity [facility] 2020-04-14 2020-04-14 Office Kwasi Stevens [facility] 1.2.840.114 [id number] Univers 13:02:18 13:37:00 Visit Kerri 350.1.13.10 [place] [phone] Ca dical nal [address] [facility] 2020-04-14 2020-04-14 Outpatient R KWASI STEVENS [facility] [id number] Univers 13:00:00 13:00:00 [id number] ity [facility] 2020-04-14 2020-04-14 Outpatient R KWASI STEVENS [facility] [id number] Univers 13:00:00 13:00:00 ity of [facility] 2020-04-14 2020-04-14 Orders Doctor COYLE 1.2.840.114 [id number] Univers 00:00:00 00:00:00 Only Unassigned, ESHA 350.1.13.10 ity of [place] [facility] 4.2.7.2.686 [place] as [phone] [address] 2020-04-07 2020-04-07 Outpatient R KWASI STEVENS [facility] [id number] Univers 13:00:00 13:00:00 [id number] ity [facility] 2020-03-13 2020-03-13 Outpatient R ADUM, [facility] [id number] Univers 14:00:00 14:00:00 JENISE ity [facility] 2020-03-06 2020-03-06 Outpatient R KWASI STEVENS [facility] [id number] Univers 13:00:00 13:00:00 ity [facility] 2020-03-06 2020-03-06 Orders Doctor COYLE 1.2.840.114 [id number] Univers 00:00:00 00:00:00 Only Unassigned, ESHA 350.1.13.10 ity of [employer] [facility] 4.2.7.2.686 James as [phone] [facility] [address] 2019-09-13 2019-10-12 Outpatient LISA DEGROOTSE MARY LOU [id number] MH 11:00:00 23:59:00 OBONORUMA [facility] 2019-09-08 2019-09-08 Outpatient MIKAYLA BL MARY LOU 7500 MHBL 06:26:00 09:02:00 OBONORUMA Results Test Description Test Time Test Comments Results Result Comments Source HGB HCT 2021-08-16 07:37:00 Test Item Value Reference Range Interpretation Comme nts HEMOGLOBIN (test code = HGB) 11.6 g/dL 10.1-13.8 N HEMATOCRIT (test code = HCT) 35.1 % 32.5-41.8 N [id number] 13:54:00 Test Item Value Reference Range Interpretation Comments GLUBED (test code = GLUBED) 80 mg/dL 65-110 N AG HEPATITIS B [id number] 14:49:00 Test Item Value Reference Range Interpretation Comments AG HEPATITIS B SURFACE (test code NONREACTIVE NONREACTIVE = HBSAG) AB HEPATITIS C [id number] 14:49:00 Test Item Value Reference Range Interpretation Comments AB HEPATITIS C (test code = NONREACTIVE NONREACTIVE HCVAB) SIGNAL TO CUTOFF (test code = 0.08 <0.80 N CUTOFF) AB [id number] 14:49:00 Test Item Value Reference Range Interpretation Comments AB TREPONEMA (test code = TREPAB) NONREACTIVE NONREACTIVE AB HIV 1 14:49:00 Test Item Value Reference Range Interpretation Comments AB HIV 1 2 (test NONREACTIVE NONREACTIVE [facility] code = [id number]) 4th Gen HIV Ag/Ab Combo Screen COVID 19 Asymptomatic IH [id number] 14:38:00 Test Item Value Reference Range Interpretation Comments COVID 19 NEGATIVE NEGATIVE This test has b een Asymptomatic IH AG authorize d only for the (test code = detection ofpro teins from COVNONPUIAG) SARS-CoV-2, not for any other viruses orpathogens. N egative results should be treated as presumptive andconfirmed wi th a molecular assay , if necessary for patientmanageme nt. Negative result s do not rule out COVID- 19 andshould not b e used as the sole basis for treatment orpat ient management deci sions, including infec tion controldecision s. Negative result s should be considered i n thecontext of a patient's recent exposure s, history and thepresence of clinical signs and symptoms consis tent withCOVID-19. T his test has not been FD A cleared or approved; th e test hasbeen authori zed by FDA under an Emerge ncy Use Authorization(E UA) for use by laborato derek certified under the CLIA thatmeet the re quirements to perform mode rate, high or waivedcomple xity tests. This david t is authorized for use at thePoint of Car e (POC), i.e., in patien t care settingsoperati ng under a CLIA Certificat e of Waiver, Certifi mayito ofCompliance, o r Certificate of Accreditation. This test is only authori zed for the duration of thedeclaration that circumstances e xist justifying theauthorizatio n of emergency use o f in vitro diagnostic test sfor detection and/o r diagnosis of CO VID-19 under Wdbbgyj99 4(b)(1) of the Act, 21 U.S .C. 360bbb-3(b)(1), unless theauthorizatio n is terminated or r evoked sooner. URINALYSIS W/O [id number] 14:03:00 Test Item Value Reference Range Interpretation Comments UA GLUCOSE DIPSTICK (test code = NEGATIVE NEGATIVE DGLUU) UA KETONE DIPSTICK (test code = 2+ NEGATIVE KETU) UA PROTEIN DIPSTICK (test code = TRACE NEGATIVE A PROU) IS NURSE PERFORMING TEST? NCBC W/AUTO [id number] 13:43:00 Test Item Value Reference Range Interpretation Comments WHITE BLOOD CELL (test code = WBC) 6.2 K/mm3 6.5-12.3 L RED BLOOD CELL (test code = RBC) 4.90 M/mm3 3.51-4.69 H HEMOGLOBIN (test code = HGB) 13.4 g/dL 10.1-13.8 N HEMATOCRIT (test code = HCT) 40.8 % 32.5-41.8 N MEAN CELL VOLUME (test code = MCV) 83.3 fL 84.6-96.6 L MEAN CELL HGB (test code = MCH) 27.3 pg 27.3-33.9 N MEAN CELL HGB CONCETRATION (test 32.8 gm/dL 32.0-34.2 N code = MCHC) RED CELL DISTRIBUTION WIDTH (test 14.6 % 12.2-16.3 N code = RDW) PLATELET COUNT (test code = PLT) 255 K/mm3 134-363 N MEAN PLATELET VOLUME (test code = 10.2 fL 9.2-12.7 N MPV) NEUTROPHIL % (test code = NT%) 64.4 % 57.9-77.3 N LYMPHOCYTE % (test code = LY%) 28.4 % 14.5-29.7 N MONOCYTE % (test code = MO%) 5.5 % 3.6-10.2 N EOSINOPHIL % (test code = EO%) 1.0 % 0.0-3.0 N BASOPHIL % (test code = BA%) 0.2 % 0.1-0.9 N NEUTROPHIL # (test code = NT#) 4.0 K/mm3 LYMPHOCYTE # (test code = LY#) 1.8 K/mm3 MONOCYTE # (test code = MO#) 0.3 K/mm3 EOSINOPHIL # (test code = EO#) 0.06 K/mm3 BASOPHIL # (test code = BA#) 0.0 K/mm3 RBC MORPHOLOGY REQUIRED (test code NORMAL NORMAL = RBCM) PLATELET MORPHOLOGY REQUIRED (test NORMAL NORMAL code = PLTMR) [id number] 11:36:00 Test Item Value Reference Range Interpretation Comments GLUBED (test code = GLUBED) 147 mg/dL 65-110 H [id number] 06:40:00 Test Item Value Reference Range Interpretation Comments GLUBED (test code = GLUBED) 90 mg/dL 65-110 N [id number] 20:22:00 Test Item Value Reference Range Interpretation Comments GLUBED (test code = GLUBED) 97 mg/dL 65-110 N [id number] 17:15:00 Test Item Value Reference Range Interpretation Comments GLUBED (test code = GLUBED) 123 mg/dL 65-110 H [id number] 11:00:00 Test Item Value Reference Range Interpretation Comments GLUBED (test code = GLUBED) 120 mg/dL 65-110 H [id number] 06:14:00 Test Item Value Reference Range Interpretation Comments GLUBED (test code = GLUBED) 84 mg/dL 65-110 N [id number] 20:38:00 Test Item Value Reference Range Interpretation Comments GLUBED (test code = GLUBED) 114 mg/dL 65-110 H AG HEPATITIS B [id number] 16:56:00 Test Item Value Reference Range Interpretation Comments AG HEPATITIS B SURFACE (test code NONREACTIVE NONREACTIVE = HBSAG) AB HEPATITIS C [id number] 16:56:00 Test Item Value Reference Range Interpretation Comments AB HEPATITIS C (test code = NONREACTIVE NONREACTIVE HCVAB) SIGNAL TO CUTOFF (test code = 0.04 <0.80 N CUTOFF) AB [id number] 16:56:00 Test Item Value Reference Range Interpretation Comments AB TREPONEMA (test code = TREPAB) NONREACTIVE NONREACTIVE AB HIV 1 16:56:00 Test Item Value Reference Range Interpretation Comments AB HIV 1 2 (test NONREACTIVE NONREACTIVE Done by [facility] code = [id number]) 4th Gen HIV Ag/Ab Combo Screen COMPREHENSIVE METABOLIC [id number] 15:44:00 Test Item Value Reference Range Interpretation Comments SODIUM (test code = NA) 136 mEq/L 135-145 N POTASSIUM (test code = K) 4.0 mEq/L 3.5-5.0 N CHLORIDE (test code = CL) 103 mEq/L 100-115 N CARBON DIOXIDE (test code = CO2) 24 mEq/L 22-31 N ANION GAP (test code = GAP) 13.30 10-20 N GLUCOSE (test code = GLU) 88 mg/dL 65-110 N BLOOD UREA NITROGEN (test code = 7 mg/dL 7-18 N BUN) GLOMERULAR FILTRATION RATE (test 152 ml/min >60 N code = GFR) CREATININE (test code = CREAT) 0.5 mg/dL 0.5-1.0 N TOTAL PROTEIN (test code = PROT) 6.5 gm/dL 6.3-8.2 N ALBUMIN (test code = ALB) 2.8 gm/dL 3.4-4.8 L CALCIUM (test code = CA) 8.8 mg/dL 8.4-10.2 N BILIRUBIN TOTAL (test code = 0.3 mg/dL 0.2-1.0 N BILT) SGOT/AST (test code = AST) 15 units/L 15-37 N SGPT/ALT (test code = ALT) 14 units/L 12-78 N ALKALINE PHOSPHATASE TOTAL (test 156 units/L 46-116 H code = ALKP) [id number] 15:30:00 Test Item Value Reference Range Interpretation Comments GLUBED (test code = GLUBED) 86 mg/dL 65-110 N CBC W/AUTO [id number] 15:10:00 Test Item Value Reference Range Interpretation Comments WHITE BLOOD CELL (test code = WBC) 8.5 K/mm3 6.5-12.3 N RED BLOOD CELL (test code = RBC) 4.92 M/mm3 3.51-4.69 H HEMOGLOBIN (test code = HGB) 13.6 g/dL 10.1-13.8 N HEMATOCRIT (test code = HCT) 41.1 % 32.5-41.8 N MEAN CELL VOLUME (test code = MCV) 83.5 fL 84.6-96.6 L MEAN CELL HGB (test code = MCH) 27.6 pg 27.3-33.9 N MEAN CELL HGB CONCETRATION (test 33.1 gm/dL 32.0-34.2 N code = MCHC) RED CELL DISTRIBUTION WIDTH (test 14.6 % 12.2-16.3 N code = RDW) PLATELET COUNT (test code = PLT) 283 K/mm3 134-363 N MEAN PLATELET VOLUME (test code = 9.9 fL 9.2-12.7 N MPV) NEUTROPHIL % (test code = NT%) 68.1 % 57.9-77.3 N LYMPHOCYTE % (test code = LY%) 24.5 % 14.5-29.7 N MONOCYTE % (test code = MO%) 5.9 % 3.6-10.2 N EOSINOPHIL % (test code = EO%) 0.9 % 0.0-3.0 N BASOPHIL % (test code = BA%) 0.1 % 0.1-0.9 N NEUTROPHIL # (test code = NT#) 5.8 K/mm3 LYMPHOCYTE # (test code = LY#) 2.1 K/mm3 MONOCYTE # (test code = MO#) 0.5 K/mm3 EOSINOPHIL # (test code = EO#) 0.08 K/mm3 BASOPHIL # (test code = BA#) 0.0 K/mm3 RBC MORPHOLOGY REQUIRED (test code NORMAL NORMAL = RBCM) PLATELET MORPHOLOGY REQUIRED (test NORMAL NORMAL code = PLTMR) COVID 19 Asymptomatic IH [id number] 15:01:00 Test Item Value Reference Range Interpretation Comments COVID 19 NEGATIVE NEGATIVE This test has b een Asymptomatic IH AG authorize d only for the (test code = detection ofpro teins from COVNONPUIAG) SARS-CoV-2, not for any other viruses orpathogens. N egative results should be treated as presumptive andconfirmed wi th a molecular assay , if necessary for patientmanageme nt. Negative result s do not rule out COVID- 19 andshould not b e used as the sole basis for treatment orpat ient management deci sions, including infec tion controldecision s. Negative result s should be considered i n thecontext of a patient's recent exposure s, history and thepresence of clinical signs and symptoms consis tent withCOVID-19. T his test has not been FD A cleared or approved; th e test hasbeen authori jayden by FDA under an Emerge ncy Use Authorization(E UA) for use by laborato derek certified under the CLIA thatmeet the re quirements to perform mode rate, high or waivedcomple xity tests. This david t is authorized for use at thePoint of Car e (POC), i.e., in patien t care settingsoperati ng under a CLIA Certificat e of Waiver, Certifi mayito ofCompliance, o r Certificate of Accreditation. This test is only authori zed for the duration of thedeclaration that circumstances e xist justifying theauthorizatio n of emergency use o f in vitro diagnostic test sfor detection and/o r diagnosis of CO VID-19 under Ptchdhm27 4(b)(1) of the Act, 21 U.S .C. 360bbb-3(b)(1), unless theauthorizatio n is terminated or r evoked sooner. URINALYSIS [id number] 14:16:00 Test Item Value Reference Range Interpretation Comments UA COLOR (test code = COLU) YELLOW YELLOW UA APPEARANCE (test code = CLOUDY CLEAR A APPU) UA GLUCOSE DIPSTICK (test code NEGATIVE NEG = DGLUU) UA BILIRUBIN DIPSTICK (test NEGATIVE NEG code = BILU) UA KETONE DIPSTICK (test code NEGATIVE NEG = KETU) UA SPECIFIC GRAVITY (test code 1.012 1.001-1.035 N = SGU) UA BLOOD DIPSTICK (test code = NEG NEG KEVIN) UA PH DIPSTICK (test code = 7.0 5-9 YUMIKO) UA PROTEIN DIPSTICK (test code NEGATIVE NEG = PROU) UA UROBILINIOGEN DIPSTICK NEGATIVE mg/dL NEG (test code = URO) UA NITRITE DIPSTICK (test code NEG NEG = LEXII) UA LEUKOCYTE ESTERASE DIPSTICK TRACE NEG A (test code = LEUU) UA WBC (test code = WBCU) 0-2 #/hpf NONE SEEN UA RBC (test code = RBCU) 3-5 #/hpf NONE SEEN A UA EPITHELIAL CELLS (test code RARE #/HPF RARE-FEW = EPIU) UA MUCUS (test code = MUCU) RARE NONE SEEN UA AMORPHOUS SEDIMENT (test FEW code = AMORU) URINE SAMPLE: CLEAN CATCH- US FLW [id number] 00:00:00 [facility] MARIAJOSE RENNER : 1995 Sex: F Patient Name: MARIAJOSE LAZO Unit No: [id number] EXAMS: CPT CODE: [id number] [place] 33669 PROCEDURE INFORMATION: Exam: US ; Follow up Exam date and time: 08/01/2021 7:24 PM Age: 25 years old Clinical indication: Screening exam; Other: Gdm, evaluate size and position; TECHNIQUE: Imaging protocol: Transabdominal ultrasound of the uterus, real time with image documentation. Follow-up (eg, re-evaluation of size by measuring standard growth parameters and amniotic fluid volume, re- evaluation of organ system(s) suspected or confirmed to be abnormal on a previous scan). COMPARISON: No relevant prior studies available. FINDINGS: Gestation: A single intrauterine is present. heart rate: Embryonic/ cardiac activity is identified, at a rate of 135 bpm. presentation: A normal intrauterine is present in a vertex presentation. Placenta: The placenta is located anteriorly and is normal. There is no evidence of a placenta previa. Amniotic fluid index: There is a normal amount of amniotic fluid, with an amniotic fluid index of 16.6 cm. BIOMETRY: Gestational age (AUA): Measurements correlate with a mean gestational age of 37 weeks 3 days. Estimated weight: Estimated weight is 8 lb 2 oz. Biparietal diameter (BPD): Biparietal diameter measures 40 weeks 1 day. Abdominal circumference (AC): Abdominal circumference measures 39 weeks 2 days. Femur length (FL): Femur length measures 36 weeks 4 days. MATERNAL: Cervix: Cervix measures 3.4 cm in length. Right ovary/adnexa: Right ovary measures 3.4 x 1.8 x 2.1 cm. No focal abnormality. Left ovary/adnexa: Left ovary measures 4.5 x 1.7 x 3.0 cm. No focal abnorma lity. IMPRESSION: Living intrauterine with no evidence of complications. at 2035 Reported and signed by: Sergio Cespedes M.D. The [facility] NAME: MARIAJOSE LAZO Radiology Department PHYS: Mariah Clark MD [address] : 1995 AGE: 25 SEX: F [place], [place] [address] LOC: F.3000 A PHONE #: [phone] EXAM DATE: 08/01/2021 STATUS: ADM IN FAX #: [phone] RAD NO: Page 1 Signed Report (CONTINUED) Patient Name: MARIAJOSE LAZO Unit No:[id number] EXAMS: CPT CODE: [id number] US FLW UP 73262 <Continued> CC: Mariah Angeles Technologist: Mary Kaplan RDMS, RVT Probe: Trnscrbd D/ (2034) GCD.CPS Orig Print D/T: S: 08/01/2021 (2034) The [facility] NAME: MARIAJOSE LAZO Radiology Department PHYS: Mariah Clark MD [address] : 1995 AGE: 25 SEX: F [place] [address] LOC: F.3000 A PHONE #: [phone] EXAM DATE: 08/01/2021TATUS: ADM IN FAX #: [phone] RAD NO: Page 2 Signed Report Patient Name: MARIAJOSE LAZO Unit No: [id number] EXAMS: CPT CODE: [id number] [place] FLW UP 07105 <Continued> The [facility] NAME: MARIAJOSE LAZO JUD Radiology Department PHYS: Mariah Clark MD [address] : 1995 AGE: 25 SEX: F [place] [address] LOC: F.3000 A PHONE #: [phone] EXAM DATE: 08/01/2021 STATUS: ADM IN FAX#: [phone] RAD NO: Page 3 Signed [id number] 00:39:29 Test Item Value Reference Range Interpretation Comments PROLACTIN (test code = 9193026877) 14.2 ng/mL 3.3-26.7 Lab Interpretation (test code = Normal 84253-3) [facility] [id number] 21:16:13 Test Item Value Reference Range Interpretation Comments TSH (test code = See_Comment [Automated message] [id number]) The system [employer] generated this result transmitted ref erence range: 0.45 - 4 .70 mIU/L. The refe rence range was not u sed to interpret this result as normal/abnor mal. Lab Interpretation (test Normal code = 64748-9) [facility] [id number] 21:02:30 Test Item Value Reference Range Interpretation Comments FREE T4 (test code = See_Comment [Autom ated message] [id number]) The system [employer] generated this result transmitted ref erence range: 0.78 - 2 .20 ng/dL:. The ref erence range was not u sed to interpret this result as normal/abnor mal. Lab Interpretation (test Normal code = 98969-4) [facility]YLATED HEMOGLOBIN (A1C)2020-12-13 21:02:13 Test Item Value Reference Range Interpretation Comments HGB A1C (test code = 5.7 % 4.0-5.7 4548-4) FROILAN (test code = FROILAN) Reference RangesNormal: <5.7%Prediabetes: 5.7 - 6.4%Diabetes: > 6.5% Lab Interpretation (test Normal code = 92395-3) [facility] [id number] 21:02:08 Test Item Value Reference Range Interpretation Comments FREE T3 (test code = 8935113220) 4.12 pg/mL 2.77-5.27 Lab Interpretation (test code = Normal 53400-3) [facility] Center[facility] (33443)(TOTAL CHOLESTEROL, TRIGLYCERIDES, HDL)2020-12-13 20:45:51 Test Item Value Reference Range Interpretation Comments CHOL (test code = 167 mg/dL 120-200 0273099271) HDL (test code = 41 mg/dL >50 L 7188953065) HDLC RATIO (test code = See_Comment [Au tomated message] 9732832159) The system [employer] generated this result transmit sam reference range : <=4.5. The refe rence range was not u sed to interpret th is result as normal/abnormal . TRIG (test code = 111 mg/dL 30-170 2847187889) LDL CHOL (test code = 104 mg/dL See_Comment [Auto mated message] 77909-3) The system [employer] generated this result transmit sam reference range : <=160. The refe rence range was not u sed to interpret th is result as normal/abnormal . VLDL (test code = 22 mg/dL 5-60 [id number]) Lab Interpretation (test Abnormal code = 25665-3) [facility]
[2021-11-22 15:06] LABS: Urine Blood 1+ (Negative); Urine Glucose Negative (Negative); Urine Protein Negative (Negative); Urine Specific Gravity 1.015 (1.005-1.030)
[2021-11-22 15:11] LABS: Absolute Lymphocytes (CBC) 1.7 K/uL (0.7-4.9); Hematocrit 41.6 % (36.0-45.0); Lymphocytes % 28.2 % (15.3-44.8); RBC Red Blood Cell Count 5.13 M/uL (3.86-4.86)
[2021-11-22] MEDS ORDERED: NA CHLORIDE 0.9% 1,000 ML ONE (15:17)
[2021-11-22] MEDS ORDERED: ONDANSETRON 4 MG/2 ML VIAL ONE ×2 (15:17→22:14)
[2021-11-22 15:27] LABS: Urine Specific Gravity/Preg 1.015 (1.005-1.030)
[2021-11-22] MEDS ORDERED: MORPHINE 4 MG/ML SYR ONE ×2 (15:27→22:14)
[2021-11-22 15:34] LABS: Urine Bacteria 20-50 /HPF (<20); Urine RBC <5 /HPF (NONE SEEN)
[2021-11-22 15:43] LABS: Albumin 3.7 g/dL (3.4-5.0); Bilirubin Total 1.4 mg/dL (0.2-1.0); Potassium 4.2 mmol/L (3.5-5.1); Protein, Total 7.4 g/dL (6.4-8.2)
--- NOTE | 2021-11-22 16:25 | RAD REPORT ---
EXAM DESCRIPTION: CT - Abdomen Pelvis W Contrast - 11/22/2021 4:11 pm CLINICAL HISTORY: Abdominal pain/right upper quadrant pain COMPARISON: none. TECHNIQUE: Computed axial tomography of the abdomen pelvis was obtained. 100 cc Isovue-300 was admin istered intravenously. Oral contrast was not requested which limits evaluation of bowel and appendix All CT scans are performed using dose optimization technique as appropriate and may include automated exposure control or mA/KV adjustment according to patient size. FINDINGS: Multiple small gallstones. Borderline gallbladder distention The liver, spleen, pancreas, adrenal and kidneys appear unremarkable. There is no evidence of diverticulitis. Small to moderate umbilical hernia containing fat IUD in good position IMPRESSION: Cholelithiasis. Borderline gallbladder distention
--- NOTE | 2021-11-22 17:43 | RAD REPORT ---
EXAM DESCRIPTION: US - Abdomen Exam Limited - 11/22/2021 5:31 pm CLINICAL HISTORY: Abdominal pain. COMPARISON: CT abdomen November 22, 2021 FINDINGS: Multiple gallstones. Borderline gallbladder distention. Gallbladder wall upper limits norm al thickness Dilatation of the common bile duct IMPRESSION: Cholelithiasis with borderline gallbladder distention Dilatation of the common bile duct suspicious for choledocholithiasis
[2021-11-22] MEDS ORDERED: PIPERACIL/TAZO 3.375 GM VIAL IV ONE (18:22)
[2021-11-22] MEDS ORDERED: NA CHLORIDE 0.9% 100 ML ONE (18:22)
--- NOTE | 2021-11-22 21:05 | ER ---
Nurse's Notes [facility] Name: Balaji Lemus Age: 26 yrs Sex: Female : 1995 Arrival Date: 11/22/2021 Time: 14:17 Bed 17 Private MD: Conrad Dial Diagnosis: Choledocolithiasis Presentation: 11/22 14:28 Chief complaint: Patient states: my stomach is hurting really bad. it started 4 days tw2 ago. in august i went to [facility] and said i was just constipated after they scanned me and did blood work. it radiates to my back and it hurting really bad. + nausea. Coronavirus screen: At this time, the client does not indicate any symptoms associated with coronavirus-19. Ebola Screen: Patient denies travel to an Ebola-affected area in the 21 days before illness onset. Initial Sepsis Screen: Does the patient meet any 2 criteria? No. Patient's initial sepsis screen is negative. Does the patient have a suspected source of infection? No. Patient's initial sepsis screen is negative. Risk Assessment: Do you want to hurt yourself or someone else? Patient reports no desire to harm self or others. Onset of symptoms was November 22, 2021. 14:28 Method Of Arrival: Ambulatory tw2 14:28 Acuity: TOMASZ 3 tw2 14:33 Note pt given urine specimen cup at this time and is in the restroom. tw2 Triage Assessment: 14:29 General: Appears in no apparent distress. uncomfortable, Behavior is calm, cooperative, tw2 appropriate for age. Pain: Complains of pain in umbilical area and right lower quadrant. Pain: Pain radiates to back. GI: Reports lower abdominal pain, upper abdominal pain, nausea. 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 - Social history:: Smoking status: Patient denies any tobacco usage or history of. Screenin:33 Abuse screen: Denies threats or abuse. Nutritional screening: No deficits noted. tw2 Tuberculosis screening: No symptoms or risk factors identified. Fall Risk None identified. Assessment: 15:25 General: Appears in no apparent distress. comfortable, Behavior is calm, cooperative, jd3 appropriate for age. Pain: Complains of pain in right upper quadrant and left upper quadrant Quality of pain is described as crampy, tender. Neuro: Ardon Agitation-Sedation Scale (RASS): 0 - Alert and Calm Level of Consciousness is awake, alert, obeys commands, Oriented to person, place, time, situation. Cardiovascular: Denies chest pain, Capillary refill < 3 seconds Patient's skin is warm and dry. Respiratory: Airway is patent Respiratory effort is even, unlabored, Respiratory pattern is regular, symmetrical, Denies cough, shortness of breath. GI: Abdomen is non-distended, Abd is soft X 4 quads Abdomen is tender to palpation in right upper quadrant and left upper quadrant Reports upper abdominal pain, nausea. : No signs and/or symptoms were reported regarding the genitourinary system. EENT: No signs and/or symptoms were reported regarding the EENT system. Derm: Skin is intact, Skin is dry, Skin is normal, Skin temperature is warm. Musculoskeletal: Circulation, motion, and sensation intact. Range of motion: intact in all extremities. 16:55 Reassessment: Patient appears in no apparent distress at this time. Patient and/or jd3 family updated on plan of care and expected duration. Pain level reassessed. Patient is alert, oriented x 3, equal unlabored respirations, skin warm/dry/pink. provider at bedside. 18:13 Reassessment: Patient appears in no apparent distress at this time. No changes from jd3 previously documented assessment. Patient and/or family updated on plan of care and expected duration. Pain level reassessed. Patient is alert, oriented x 3, equal unlabored respirations, skin warm/dry/pink. 19:22 General: Appears in no apparent distress. comfortable, Behavior is calm, cooperative. lg3 Pain: Complains of pain in left upper quadrant and right upper quadrant. Neuro: No deficits noted. Ardon Agitation-Sedation Scale (RASS): 0 - Alert and Calm Level of Consciousness is awake, alert, obeys commands, Oriented to person, place, time, situation. Cardiovascular: No deficits noted. Denies chest pain, shortness of breath, Capillary refill < 3 seconds Clubbing of nail beds is absent JVD is absent Patient's skin is warm and dry. Respiratory: No deficits noted. Airway is patent Trachea midline Respiratory effort is even, unlabored, Respiratory pattern is regular, symmetrical. GI: Reports upper abdominal pain, nausea. : No deficits noted. No signs and/or symptoms were reported regarding the genitourinary system. EENT: No deficits noted. No signs and/or symptoms were reported regarding the EENT system. Derm: No deficits noted. No signs and/or symptoms reported regarding the dermatologic system. Skin is intact, Skin is dry, Skin temperature is warm. Musculoskeletal: No deficits noted. No signs and/or symptoms reported regarding the musculoskeletal system. Circulation, motion, and sensation intact. Range of motion: intact in all extremities. 20:55 Reassessment: Patient appears in no apparent distress at this time. No changes from lg3 previously documented assessment. Patient and/or family updated on plan of care and expected duration. Pain level reassessed. Patient is alert, oriented x 3, equal unlabored respirations, skin warm/dry/pink. Patient states feeling better. Vital Signs: 14:28 BP 129 / 88; Pulse 63; Resp 17; Temp 98.2; Pulse Ox 100% on R/A; Weight 95.25 kg (R); tw2 Height 5 ft. 3 in. (160.02 cm); Pain 8/10; 16:55 Pulse 65; Resp 17 S; Pulse Ox 100% on R/A; jd3 18:13 BP 133 / 89; Pulse 62; Resp 16 S; Pulse Ox 100% on R/A; jd3 19:22 BP 106 / 51; Pulse 52; Resp 17; Pulse Ox 100% ; lg3 14:28 Body Mass Index 37.20 (95.25 kg, 160.02 cm) tw2 ED Course: 14:17 Patient arrived in ED. am2 14:17 Conrad Dial MD is Private Physician. am2 14:29 Triage completed. tw2 14:31 Arm band placed on. tw2 14:32 [facility] jh7 14:32 Tobin Cheng MD is Attending Physician. 7 14:42 Blake, Dell, RN is Primary Nurse. jd3 15:07 Inserted saline lock: 20 gauge in right antecubital area, using aseptic technique. jd3 Blood collected. [facility]. 15:25 Patient has correct armband on for positive identification. Bed in low position. Call jd3 light in reach. Side rails up X 1. Pulse ox on. NIBP on. 16:13 CT Abd/Pelvis - IV Contrast Only In Process Unspecified. EDMS 17:28 US Abdomen Limited In Process Unspecified. EDMS 18:12 initiated transfer to [facility]. bd 20:[address] [facility] spoke to Juan Antonio to get a status update on the [facility] transfer. She said "we have a bed a [facility] we are just waiting to get a hold of the Hospitalist.". 20:21 PHCP role handed off by Summer Schmitt FNP jmm 20:21 Ant Dickinson PA is PHCP. [facility] 20:26 tried to initiate a transfer to [facility] the phone kept ringing no one picked [facility] up. 20:52 Connected Ant HENRY with the Hospitalist from [facility]. mw2 21:00 Connected Ant HENRY with the General Surgeon from [facility]. 2 21:23 administrative approval given by Juan Antonio Friend/ patient has been accepted to [address] to [address] bed 317/ Dr. King accepted the patient in transfer/report to be called to [phone]. 22:24 No provider procedures requiring assistance completed. Patient transferred, IV remains lg3 in place. intact, No redness/swelling at site. Administered Medications: 15:15 Drug: NS 0.9% 1000 ml Route: IV; Rate: 1 bolus; Site: right antecubital; jd3 18:13 Follow up: Response: No adverse reaction; IV Status: Completed infusion jd3 15:15 Drug: Zofran (Ondansetron) 4 mg Route: IVP; Site: right antecubital; jd3 16:15 Follow up: Response: No adverse reaction jd3 15:24 Drug: morphine 4 mg Route: IVP; Infused Over: 4 mins; Site: right antecubital; jd3 16:20 Follow up: Response: No adverse reaction; RASS: Alert and Calm (0) jd3 18:27 Drug: Zosyn (piperacillin-tazobactam) 3.375 grams Route: IVPB; Infused Over: 60 mins; jd3 Site: right antecubital; 19:35 Follow up: Response: No adverse reaction; IV Status: Completed infusion; IV Intake: lg3 100ml 22:14 Drug: morphine 4 mg Route: IVP; Infused Over: 4 mins; Site: right antecubital; lg3 22:15 Follow up: Response: No adverse reaction lg3 22:15 Drug: Zofran (Ondansetron) 4 mg Route: IVP; Site: right antecubital; lg3 22:15 Follow up: Response: No adverse reaction lg3 Medication: 15:25 VIS not applicable for this client. jd3 Intake: 19:35 IV: 100ml; Total: 100ml. lg3 Outcome: 21:05 ER care complete, transfer ordered by MD. menjivar 22:24 Transferred by ground EMS to [facility], Transfer form completed. lg3 22:24 Condition: stable 22:24 Instructed on the need for transfer, Demonstrated understanding of instructions. 23:24 Patient left the ED. lg3 Signatures: Dispatcher [employer] EDMS Kiera Nash Joel, PA PA jmm Wise, Tara, RN RN tw2 Chelly Lamb amDell Rivers RN RN jd3 Kenn Melton 2 Jessie Lux RN RN lg3 Summer Schmitt FNP SIGNAL INSPECTOR 7
--- NOTE | 2021-11-22 21:05 | EDPHYS ---
Physician Documentation [facility] Name: Balaji Lemus Age: 26 yrs Sex: Female : 1995 Arrival Date: 11/22/2021 Time: 14:17 Bed 17 Private MD: Conrad Dial ED Physician Tobin Cheng HPI: 11/22 14:35 The patient presents with abdominal pain in the epigastric area, in the right upper jh7 quadrant. Onset: The symptoms/episode began/occurred today. Associated signs and symptoms: Pertinent positives: nausea and vomiting, Pertinent negatives: diarrhea, vomiting blood. Patient reports epigastric/right upper quadrant pain radiating to the back starting today. States that she had this pain once in August, but was told it was constipation. Last bowel movement today. Denies any fever or diarrhea.. 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 - Social history:: Smoking status: Patient denies any tobacco usage or history of. ROS: 14:35 Constitutional: Negative for fever, chills, and weight loss, ENT: Negative for injury, jh7 pain, and discharge, Neck: Negative for injury, pain, and swelling, Cardiovascular: Negative for chest pain, palpitations, and edema, Respiratory: Negative for shortness of breath, cough, wheezing, and pleuritic chest pain, Back: Negative for injury and pain, Skin: Negative for injury, rash, and discoloration, Neuro: Negative for headache, weakness, numbness, tingling, and seizure. 14:35 Abdomen/GI: Positive for abdominal pain, nausea and vomiting, Negative for diarrhea, black/tarry stool, rectal bleeding. 14:35 All other systems are negative. Exam: 14:35 ENT: Nares patent. No nasal discharge, no septal abnormalities noted. Oropharynx with jh7 no redness, swelling, or masses, exudates, or evidence of obstruction, uvula midline. Mucous membranes moist. Neck: Trachea midline, no thyromegaly or masses palpated, and no cervical lymphadenopathy. Supple, full range of motion without nuchal rigidity, or vertebral point tenderness. No Meningismus. Cardiovascular: Regular rate and rhythm with a normal S1 and S2. No gallops, murmurs, or rubs. Normal PMI, no JVD. No pulse deficits. Respiratory: Lungs have equal breath sounds bilaterally, clear to auscultation and percussion. No rales, rhonchi or wheezes noted. No increased work of breathing, no retractions or nasal flaring. Back: No spinal tenderness. No costovertebral tenderness. Full range of motion. Skin: Warm, dry with normal turgor. Normal color with no rashes, no lesions, and no evidence of cellulitis. MS/ Extremity: Pulses equal, no cyanosis. Neurovascular intact. Full, normal range of motion. Neuro: Awake and alert, GCS 15, oriented to person, place, time, and situation. Normal gait. 14:35 Constitutional: The patient appears alert, awake, uncomfortable. 14:35 Abdomen/GI: Inspection: abdomen appears normal, Bowel sounds: normal, Palpation: moderate abdominal tenderness, in the epigastric area and right upper quadrant, Indicators: Fairbanks's sign is positive. Vital Signs: 14:28 BP 129 / 88; Pulse 63; Resp 17; Temp 98.2; Pulse Ox 100% on R/A; Weight 95.25 kg (R); tw2 Height 5 ft. 3 in. (160.02 cm); Pain 8/10; 16:55 Pulse 65; Resp 17 S; Pulse Ox 100% on R/A; jd3 18:13 BP 133 / 89; Pulse 62; Resp 16 S; Pulse Ox 100% on R/A; jd3 19:22 BP 106 / 51; Pulse 52; Resp 17; Pulse Ox 100% ; lg3 14:28 Body Mass Index 37.20 (95.25 kg, 160.02 cm) tw2 MDM: 14:33 Patient medically screened. [facility] 17:30 Differential diagnosis: cholecystitis, Cholelithiasis, gastritis, gastroesophageal jh7 reflux disease, GI Bleed. Data reviewed: vital signs, nurses notes, lab test result(s), radiologic studies, CT scan, ultrasound. Data interpreted: Pulse oximetry: is 100 %. Interpretation: normal. Counseling: I had a detailed discussion with the patient and/or guardian regarding: the historical points, exam findings, and any diagnostic results supporting the discharge/admit diagnosis, the need to transfer to another facility, for higher level of care. Awaiting: transfer to another facility. ED course: The patient's pain was relieved after morphine was given. She remained stable during her ER visit. Explained the diagnosis and the need for transfer. The patient understood the plan of care.. 19:19 ED course: spoke to Dr. Janes FERRIS regarding the patient. He stated that he would like [facility] if we spoke to General Surgery as well.. 21:03 ED course: I discussed the patient with Dr. Roverto hager surgery and Dr. Graham whom [facility] to her service. . 11/22 14:43 Order name: CBC with Diff; Complete Time: 15:49 [facility] 11/22 14:43 Order name: CMP; Complete Time: 15:49 [facility] 11/22 14:43 Order name: Lipase; Complete Time: 15:49 [facility] 11/22 14:43 Order name: Urine Microscopic Only; Complete Time: 15:49 [facility] 11/22 15:07 Order name: Urine Dipstick-Ancillary; Complete Time: 15:11 [facility] 11/22 15:10 Order name: Urine --Ancillary (enter results); Complete Time: 15:49 11/22 14:43 Order name: CT Abd/Pelvis - IV Contrast Only; Complete Time: 16:28 [facility] 11/22 15:36 Order name: Urine Culture [facility] 11/22 15:54 Order name: SARS-COV-2 RT PCR (Document "Date of Onset" if Symptomatic); Complete Time: [facility] 19:13 11/22 16:42 Order name: US Abdomen Limited; Complete Time: 19:13 [facility] 11/22 14:43 Order name: IV Saline Lock; Complete Time: 15:08 [facility] 11/22 14:43 Order name: Labs collected and sent; Complete Time: 15:08 [facility] 11/22 14:43 Order name: Urine Dipstick-Ancillary (obtain specimen); Complete Time: 15:08 [facility] 11/22 14:43 Order name: Urine Test (obtain specimen); Complete Time: 15:08 [facility] Administered Medications: 15:15 Drug: NS 0.9% 1000 ml Route: IV; Rate: 1 bolus; Site: right antecubital; jd3 18:13 Follow up: Response: No adverse reaction; IV Status: Completed infusion jd3 15:15 Drug: Zofran (Ondansetron) 4 mg Route: IVP; Site: right antecubital; jd3 16:15 Follow up: Response: No adverse reaction jd3 15:24 Drug: morphine 4 mg Route: IVP; Infused Over: 4 mins; Site: right antecubital; jd3 16:20 Follow up: Response: No adverse reaction; RASS: Alert and Calm (0) jd3 18:27 Drug: Zosyn (piperacillin-tazobactam) 3.375 grams Route: IVPB; Infused Over: 60 mins; jd3 Site: right antecubital; 19:35 Follow up: Response: No adverse reaction; IV Status: Completed infusion; IV Intake: lg3 100ml 22:14 Drug: morphine 4 mg Route: IVP; Infused Over: 4 mins; Site: right antecubital; lg3 22:15 Follow up: Response: No adverse reaction lg3 22:15 Drug: Zofran (Ondansetron) 4 mg Route: IVP; Site: right antecubital; lg3 22:15 Follow up: Response: No adverse reaction lg3 Disposition Summary: 11/22/21 21:05 Transfer Ordered Transfer Location: Other Acute Care Facility [facility] Reason: Higher level of care jmm Condition: Stable jmm Problem: new jmm Symptoms: are unchanged jmm Accepting Physician: Dr. Graham(11/22/21 23:24) lg3 Diagnosis - Choledocolithiasis [facility] Forms: - Medication Reconciliation Form jmm - SBAR form [facility] Signatures: Dispatcher [employer] EDMS Ant Dickinson PA PA jmm Mariah Woodard RN RN tw2 Dell Blake RN RN jd3 Jessie Lux RN RN lg3 Summer Schmitt, GLASS VIAL FILLER GLASS VIAL FILLER jh7 Corrections: (The following items were deleted from the chart) 23:24 21:05 Dr. Graham [facility] lg3
[2021-11-22 23:37] VITALS: O2SAT 100
[2021-11-22 23:40] VITALS: BP 106/51
[2021-11-22 23:43] VITALS: TEMP 98.2
== END 2021-11-22 23:24 ==
LOC: ER 14:13
DX: K80.50 Calculus of bile duct without cholangitis or cholecystitis without obstruction (principal); E11.9 Type 2 diabetes mellitus without complications; Z20.822 Contact with and (suspected) exposure to COVID-19
CPT/HCPCS: 96365; 96361; 87088; 85025; 87086; 36415; 81025; 83690; 80053; 74177; 76705; 96375; 99285; U0003; Q9967; J2543; J7030; J2405 ×2; 81003; 81015